=== PATIENT | male | born 1955 | race Hispanic/Latino ===

== ENCOUNTER 2017-07-07 10:17 | Emergency (ER) | payer SELFPAY ==
[2017-07-07 10:25] VITALS: BP 93/69; PULSE 90; RESP 18; TEMP 97.6; O2SAT 96
[2017-07-07 10:32] VITALS: BMI 26.6
[2017-07-07] MEDS ORDERED: Albuterol-Ipratrop 3 mg / 0.5 (3 ml) UD IH STA (10:34)
[2017-07-07] MEDS ORDERED: Albuterol 0.083% Inhal Sol (2.5 mg/3 mL) UD INH STA (10:34)
[2017-07-07] MEDS ORDERED: levoFLOXacin 750 mg in D5W 150 ML BAG IVPB ONE (10:50)
--- NOTE | 2017-07-07 11:01 | ED PDOC ---
Arrival/HPI - General Chief Complaint: Shortness Of Breath Time Seen by Provider: 07/07/17 10:33 Historian: Patient - History of Present Illness Narrative History of Present Illness (Text): 07/07/17 10:58 A 62 year old male, whose past medical history includes COPD, presents to the emergency department complaining of worsening shortness of breath today. Patient primarily speaks [place] Zealander, history obtained through granddaughter. Patient reports experiencing similar episodes in the past. Patient denies any fever, chills, nausea, vomiting, abdominal pain, chest pain or any other complaints. Time/Duration: Other (today) Symptom Course: Worsening Context: Home Past Medical History - Provider Review Nursing Documentation Reviewed: Yes - Infectious Disease Hx of Infectious Diseases: None - Past Medical History Past Medical History: Unable to Obtain - Cardiac Hx Cardiac Disorders: No - Pulmonary Hx Respiratory Disorders: Yes Hx Chronic Obstructive Pulmonary Disease (COPD): Yes - Neurological Hx Neurological Disorder: No - HEENT Hx HEENT Disorder: No - Renal Hx Renal Disorder: No - Endocrine/Metabolic Hx Endocrine Disorders: No - Hematological/Oncological Hx Blood Disorders: No - Integumentary Hx Dermatological Disorder: No - Musculoskeletal/Rheumatological Hx Musculoskeletal Disorders: No - Gastrointestinal Hx Gastrointestinal Disorders: No - Genitourinary/Gynecological Hx Genitourinary Disorders: No - Psychiatric Hx Psychophysiologic Disorder: No Hx Substance Use: No - Anesthesia Hx Anesthesia: No - Suicidal Assessment Feels Threatened In Home Enviroment: No Family/Social History - Physician Review Nursing Documentation Reviewed: Yes Family/Social History: No Known Family HX Smoking Status: Never Smoked Hx Alcohol Use: No Hx Substance Use: No Allergies/Home Meds Allergies/Adverse Reactions: Allergies No Known Allergies Allergy (Verified 07/07/17 10:32) Home Medications: Home Meds Medication Instructions Recorded Confirmed Fluticasone/Salmeterol [Advair 1 puff NEB TID 08/06/13 07/07/17 Diskus 250/50] Review of Systems - Physician Review All systems were reviewed & negative as marked: Yes - Review of Systems Constitutional: absent: Fevers, Night Sweats Respiratory: SOB Cardiovascular: absent: Chest Pain Gastrointestinal: absent: Abdominal Pain, Nausea, Vomiting Physical Exam Vital Signs Reviewed: Yes Vital Signs Temp Pulse Resp BP Pulse Ox 07/07/17 10:35 18 07/07/17 10:25 97.6 F 90 18 93/69 L 96 Temperature: Afebrile Blood Pressure: Hypotensive Pulse: Regular Respiratory Rate: Normal Appearance: Positive for: Well-Appearing, Non-Toxic, Comfortable Pain Distress: None Mental Status: Positive for: Alert and Oriented X 3 - Systems Exam Head: Present: Atraumatic, Normocephalic Pupils: Present: PERRL Extroacular Muscles: Present: EOMI Conjunctiva: Present: Normal Mouth: Present: Moist Mucous Membranes Neck: Present: Normal Range of Motion Respiratory/Chest: Present: Clear to Auscultation, Good Air Exchange. No: Respiratory Distress, Accessory Muscle Use Cardiovascular: Present: Regular Rate and Rhythm, Normal S1, S2. No: Murmurs Abdomen: No: Tenderness, Distention, Peritoneal Signs Back: Present: Normal Inspection Upper Extremity: Present: Normal Inspection. No: Cyanosis, Edema Lower Extremity: Present: Normal Inspection. No: Edema Neurological: Present: GCS=15, CN II-XII Intact, Speech Normal Skin: Present: Warm, Dry, Normal Color. No: Rashes Psychiatric: Present: Alert, Oriented x 3, Normal Insight, Normal Concentration Medical Decision Making ED Course and Treatment: 07/07/17 10:58 Impression: A 62 year old male with worsening shortness of breath Plan: -- Chest xray -- EKG -- Labs -- Albuterol, Duoneb, Levaquin and Solumedrol -- Reassess and disposition Progress Notes: EKG shows NSR at [address]-segment elevations, normal intervals, normal axis. Interpreted by me. Report Date: 07/07/17 11:01 Procedure: Chest xray Dictated By: Kendrick Arechiga MD Impression: No active disease - Lab Interpretations I have reviewed the lab results: Yes - RAD Interpretation Radiology Orders: 07/07/17 10:34 CHEST PORTABLE [RAD] Stat - Medication Orders Current Medication Orders: Discontinued Medications Albuterol Sulfate (Albuterol 0.083% Inhal Melvina (2.5 Mg/3 Ml) Ud) 5 mg INH STAT STA Stop: 07/07/17 10:35 Last Admin: 07/07/17 10:58 Dose: 5 mg Albuterol/Ipratropium (Duoneb 3 Mg/0.5 Mg (3 Ml) Ud) 3 ml IH STAT STA Stop: 07/07/17 10:35 Last Admin: 07/07/17 10:43 Dose: 3 ml Levofloxacin/Dextrose (Levaquin 750mg) 750 mg IVPB ONCE ONE PRN Reason: Protocol Stop: 07/07/17 10:51 Last Admin: 07/07/17 10:58 Dose: 750 mg eMAR Start Stop Document 07/07/17 10:58 OCS (Rec: 07/07/17 10:58 OCS [id number]) Intravenous Solution Start Date 07/07/17 Start Time 10:58 Methylprednisolone (Solu-Medrol) 125 mg IVP STAT STA Stop: 07/07/17 10:35 Last Admin: 07/07/17 10:43 Dose: 125 mg IVP Administration Document 07/07/17 10:43 OCS (Rec: 07/07/17 10:43 OCS [id number]) Charges for Administration # of IVP Administrations 1 - Scribe Statement The provider has reviewed the documentation as recorded by the Scribe Carley Koch Provider Scribe Attestation: All medical record entries made by the Scribe were at my direction and personally dictated by me. I have reviewed the chart and agree that the record accurately reflects my personal performance of the history, physical exam, medical decision making, and the department course for this patient. I have also personally directed, reviewed, and agree with the discharge instructions and disposition. Disposition/Present on Arrival - Present on Arrival Any Indicators Present on Arrival: No History of DVT/PE: No History of Uncontrolled Diabetes: No Urinary Catheter: No History of Decub. Ulcer: No History Surgical Site Infection Following: None - Disposition Have Diagnosis and Disposition been Completed?: Yes Diagnosis: COPD exacerbation, Tobacco dependence Disposition: HOME/ ROUTINE Disposition Time: 11:19 Patient Plan: Discharge Condition: GOOD Discharge Instructions (ExitCare): COPD Including Emphysema (DC), Medicines for Chronic Obstructive Pulmonary Disease (COPD) Additional Instructions: Camilapzef Return to us if worse. Levaquin is the antibiotic, once a day every day for ten days. Humberto- Dr. Brandon Diaz Prescriptions: Albuterol HFA [Ventolin HFA 90 mcg/actuation (8 g)] 2 puff IH [id number] #2 puff levoFLOXacin [Levaquin] 750 mg PO DAILY #10 tab Methylprednisolone [Medrol Dose Pack (21 tabs)] 4 mg PO DAILY #21 mg Forms: [facility] ([employer])
--- NOTE | 2017-07-07 11:03 | RAD ---
HISTORY: dyspnea COMPARISON: 08/06/2013 FINDINGS: LUNGS: No active pulmonary disease. PLEURA: No significant pleural effusion identified, no pneumothorax apparent. CARDIOVASCULAR: Normal. OSSEOUS STRUCTURES: No significant abnormalities. VISUALIZED UPPER ABDOMEN: Normal. OTHER FINDINGS: None. IMPRESSION: No active disease.
[2017-07-07 11:16] LABS: BASO # 0.06 K/mm3 (0.0-2.0); BASO % 0.7 % (0.0-3.0); EOS # 0.5 (0.0-0.7); EOS % 5.1 % (1.5-5.0); GRAN # 5.99 (1.4-6.5); GRAN % 64.9 % (50.0-68.0); HEMOGLOBIN 13.5 g/dL (14.0-18.0); LYMPH # 2.2 (1.2-3.4); LYMPH % 23.5 % (22.0-35.0); MEAN CELL VOLUME 95.7 fl (80.0-105.0); MEAN CORPUSCULAR HEMOGLOBIN 32.5 pg (25.0-35.0); MEAN CORPUSCULAR HGB CONC 33.9 g/dl (31.0-37.0); MEAN PLATELET VOLUME 9.8 fl (7.0-11.0); MONO # 0.5 (0.1-0.6); MONO % 5.8 % (1.0-6.0); RBC 4.16 10^6/uL (3.5-6.1); RED CELL DISTRIBUTION WIDTH 13.3 % (11.5-14.5); WHITE BLOOD COUNT 9.2 10^3/ul (4.5-11.0)
[2017-07-07 11:27] LABS: ALB/GLOB RATIO 1.1 (1.1-1.8); ALT/SGPT 22 U/L (7-56); AST/SGOT 23 U/L (17-59); BLOOD UREA NITROGEN 17 mg/dL (7-21); CALCIUM 9.7 mg/dL (8.4-10.5); GFR AFRICAN-AMERICAN > 60; GFR NON-AFRICAN AMERICAN > 60
[2017-07-07 11:30] LABS: INR 1.02 (0.93-1.08); PROTHROMBIN TIME 11.7 SECONDS (9.4-12.5)
[2017-07-07 11:39] LABS: TROPONIN I < 0.01 ng/mL
--- NOTE | 2017-07-07 16:54 | CARD ---
APPROVED REPORT EKG Measurement Heart [id number] <Conclusion> Normal sinus rhythm Normal ECG
== END 2017-07-07 12:08 | disposition home or self-care (01) ==
LOC: ED 10:17
DX: J44.1 Chronic obstructive pulmonary disease with (acute) exacerbation (principal); F17.200 Nicotine dependence, unspecified, uncomplicated
CPT/HCPCS: 71045; 80053; 82550; 83615; 84484; 85025; 85610; 93005; 96374; 99284; J2930

== ENCOUNTER 2018-02-21 13:35 | Emergency (ER) | payer MEDICAID, OTHER ==
[2018-02-21 13:35] VITALS: BMI 26.6
[2018-02-21] MEDS ORDERED: Sodium Chloride 0.9% 1,000 ML IV SCH (14:30)
--- NOTE | 2018-02-21 14:30 | ED PDOC ---
Arrival/HPI - General Chief Complaint: Shortness Of Breath Historian: Patient - History of Present Illness Narrative History of Present Illness (Text): 02/21/18 14:28 62 y/o male, pmh including copd, previous smoker, c/o coughing/wheezing x 2 days. Pt. stated that he has been coughing, feeling like his usual COPD, wheezing with no albuterol MDI, no fever or chills, no headache or night sweat, no rash, no numbness or tingling, no chest pain or palpitation, no rash, no other medical or psychological complaints. Past Medical History - Provider Review Nursing Documentation Reviewed: Yes - Infectious Disease Hx of Infectious Diseases: None - Past Medical History Past Medical History: Unable to Obtain - Cardiac Hx Cardiac Disorders: No - Pulmonary Hx Respiratory Disorders: Yes Hx Chronic Obstructive Pulmonary Disease (COPD): Yes - Neurological Hx Neurological Disorder: No - HEENT Hx HEENT Disorder: No - Renal Hx Renal Disorder: No - Endocrine/Metabolic Hx Endocrine Disorders: No - Hematological/Oncological Hx Blood Disorders: No - Integumentary Hx Dermatological Disorder: No - Musculoskeletal/Rheumatological Hx Musculoskeletal Disorders: No - Gastrointestinal Hx Gastrointestinal Disorders: No - Genitourinary/Gynecological Hx Genitourinary Disorders: No - Psychiatric Hx Psychophysiologic Disorder: No Hx Substance Use: No - Anesthesia Hx Anesthesia: No - Suicidal Assessment Feels Threatened In Home Enviroment: No Family/Social History - Physician Review Nursing Documentation Reviewed: Yes Family/Social History: Unknown Family HX Smoking Status: Never Smoked Hx Alcohol Use: No Hx Substance Use: No Allergies/Home Meds Allergies/Adverse Reactions: Allergies No Known Allergies Allergy (Verified 02/21/18 13:54) Review of Systems - Review of Systems Constitutional: absent: Fatigue, Fevers Eyes: absent: Vision Changes ENT: absent: Hearing Changes Respiratory: Cough, Sputum, Wheezing. absent: SOB Cardiovascular: absent: Chest Pain Gastrointestinal: absent: Abdominal Pain, Diarrhea, Nausea, Vomiting Skin: absent: Rash, Pruritis Neurological: absent: Headache, Dizziness Psychiatric: absent: Anxiety, Depression Physical Exam Vital Signs Reviewed: Yes Vital Signs Temp Pulse Resp BP Pulse Ox 02/21/18 14:24 17 96 02/21/18 13:55 98.1 F 68 18 138/64 95 Temperature: Afebrile Blood Pressure: Normal Pulse: Regular Respiratory Rate: Normal Appearance: Positive for: Well-Appearing, Non-Toxic, Comfortable Pain Distress: None Mental Status: Positive for: Alert and Oriented X 3 - Systems Exam Head: Present: Atraumatic, Normocephalic Pupils: Present: PERRL Extroacular Muscles: Present: EOMI Conjunctiva: Present: Normal Mouth: Present: Moist Mucous Membranes Neck: Present: Normal Range of Motion Respiratory/Chest: Present: Wheezes, Decreased Breath Sounds, Rhonchi. No: Respiratory Distress, Accessory Muscle Use, Rales, Retracting, Tachypneic, Tender to Palpation Cardiovascular: Present: Regular Rate and Rhythm, Normal S1, S2, Other (no pedal edema). No: Murmurs Abdomen: No: Tenderness, Distention, Peritoneal Signs Back: Present: Normal Inspection Upper Extremity: Present: Normal Inspection. No: Cyanosis, Edema Lower Extremity: Present: Normal Inspection. No: Edema Neurological: Present: GCS=15, CN II-XII Intact, Speech Normal Skin: Present: Warm, Dry, Normal Color. No: Rashes Psychiatric: Present: Alert, Oriented x 3, Normal Insight, Normal Concentration Medical Decision Making ED Course and Treatment: 02/21/18 14:29 -labs -cxr -IV solumedrol/duoneb -observe and reassess 02/21/18 16:48 -CXR No active disease. -Labs show no acute findings except BUN 23 (IVF ordered) -Mg within normal limit -Trop is negative after 24 hours, HEART score is low -BNP is negative -Pt. feels much better, wheezing resolved, bilateral clear to auscultate now with no wheezing/crackles/rhonchis, vitally stable, walking around and asymptomatic with oxygen persistently above 96 percentage room air as I walked with him in the ER, discussed about the results, and request to be discharged home. -Discharge home with zithromax, prednisone, albuterol, singulair, stay hydrated, follow up with your own pmd and pleater within 2 days, return to the ER for any new or worsening signs or symptoms. - RAD Interpretation Radiology Orders: 02/21/18 14:27 CHEST PORTABLE [RAD] Stat Date of service: 02/21/2018 HISTORY: cough/wheezing COMPARISON: 07/07/2017 FINDINGS: LUNGS: No active pulmonary disease. PLEURA: No significant pleural effusion identified, no pneumothorax apparent. CARDIOVASCULAR: No aortic atherosclerotic calcification present. Normal cardiac size. No pulmonary vascular congestion. OSSEOUS STRUCTURES: No significant abnormalities. VISUALIZED UPPER ABDOMEN: Normal. OTHER FINDINGS: None. IMPRESSION: No active disease. Drums Teacher: Radiologist - PA / EYELETTER / Resident Statement MD/DO has reviewed & agrees with the documentation as recorded. Disposition/Present on Arrival - Present on Arrival Any Indicators Present on Arrival: No History of DVT/PE: No History of Uncontrolled Diabetes: No Urinary Catheter: No History of Decub. Ulcer: No History Surgical Site Infection Following: None - Disposition Have Diagnosis and Disposition been Completed?: Yes Diagnosis: Bronchitis Disposition: HOME/ ROUTINE Disposition Time: 16:54 Patient Plan: Discharge Patient Problems: Current Active Problems Problem Status Onset Bronchitis Acute Condition: IMPROVED Additional Instructions: -Discharge home with zithromax, prednisone, albuterol, singulair, stay hydrated, follow up with your own pmd and pleater within 2 days, return to the ER for any new or worsening signs or symptoms. Prescriptions: Albuterol HFA [Ventolin HFA 90 mcg/actuation (8 g)] 2 puff IH [id number] PRN #1 inhaler PRN Reason: Other Azithromycin [Zithromax] 250 mg PO DAILY #6 tab Montelukast Sodium [Singulair] 10 mg PO DAILY #10 tab Prednisone 50 mg PO DAILY #5 tablet Referrals: Tanner Raza MD [Staff Provider] - Follow up with primary [facility] [place] - Follow up with primary Forms: [facility] (Slovenian), WORK NOTE
[2018-02-21] MEDS: Albuterol-Ipratrop 3 mg / 0.5 (3 ml) UD IH SCH ×2 (14:46→15:34)
[2018-02-21 14:51] LABS: BASO # 0.05 K/mm3 (0.0-2.0); BASO % 0.6 % (0.0-3.0); EOS # 0.5 (0.0-0.7); EOS % 6.2 % (1.5-5.0); GRAN # 4.78 (1.4-6.5); GRAN % 54.9 % (50.0-68.0); HEMOGLOBIN 13.5 g/dL (14.0-18.0); LYMPH # 2.6 (1.2-3.4); LYMPH % 30.1 % (22.0-35.0); MEAN CELL VOLUME 96.6 fl (80.0-105.0); MEAN CORPUSCULAR HGB CONC 34.2 g/dl (31.0-37.0); MEAN PLATELET VOLUME 9.3 fl (7.0-11.0); MONO # 0.7 (0.1-0.6); MONO % 8.2 % (1.0-6.0); RBC 4.09 10^6/uL (3.5-6.1); RED CELL DISTRIBUTION WIDTH 13.3 % (11.5-14.5); WHITE BLOOD COUNT 8.7 10^3/uL (4.5-11.0)
[2018-02-21 15:02] LABS: ALB/GLOB RATIO 1.2 (1.1-1.8); ALBUMIN 3.8 g/dL (3.0-4.8); ALT/SGPT 27 U/L (7-56); AST/SGOT 22 U/L (17-59); BLOOD UREA NITROGEN 23 mg/dL (7-21); CALCIUM 8.8 mg/dL (8.4-10.5); GFR NON-AFRICAN AMERICAN > 60
[2018-02-21 15:13] LABS: B-TYPE NATRIURETIC PEPTIDE 163 pg/mL (0-450); TROPONIN I < 0.01 ng/mL
--- NOTE | 2018-02-21 15:24 | RAD ---
Date of service: 02/21/2018 HISTORY: cough/wheezing COMPARISON: 07/07/2017 FINDINGS: LUNGS: No active pulmonary disease. PLEURA: No significant pleural effusion identified, no pneumothorax apparent. CARDIOVASCULAR: No aortic atherosclerotic calcification present. Normal cardiac size. No pulmonary vascular congestion. OSSEOUS STRUCTURES: No significant abnormalities. VISUALIZED UPPER ABDOMEN: Normal. OTHER FINDINGS: None. IMPRESSION: No active disease.
[2018-02-21 17:13] VITALS: BP 130/88; PULSE 70; RESP 18; TEMP 98; O2SAT 99
== END 2018-02-21 17:13 | disposition home or self-care (01) ==
LOC: ED 13:35
DX: J40 Bronchitis, not specified as acute or chronic (principal)
CPT/HCPCS: 71045; 80053; 83735; 83880; 84484; 85025; 96374; 99282; J2930; J7030

== ENCOUNTER 2018-05-02 09:39 | Emergency (ER) | payer SELFPAY ==
[2018-05-02 09:39] VITALS: BMI 26.6
[2018-05-02 09:55] VITALS: TEMP 97.7
[2018-05-02] MEDS ORDERED: Albuterol-Ipratrop 3 mg / 0.5 (3 ml) UD IH STA ×2 (10:01)
[2018-05-02 10:24] LABS: VENOUS BLOOD GAS BASE EXCESS 0.8 mmol/L (0.0-2.0); VENOUS BLOOD GAS PO2 48 mm/Hg (30-55); VENOUS BLOOD PH 7.37 (7.32-7.43)
--- NOTE | 2018-05-02 10:57 | RAD ---
Date of service: 05/02/2018 HISTORY: SOB COMPARISON: 02/21/2018 FINDINGS: LUNGS: No infiltrate. Calcified granuloma in right lung apex consistent with old granulomatous disease. No other pulmonary mass. PLEURA: No significant pleural effusion identified, no pneumothorax apparent. CARDIOVASCULAR: No aortic atherosclerotic calcification present. Normal cardiac size. No pulmonary vascular congestion. OSSEOUS STRUCTURES: No significant abnormalities. VISUALIZED UPPER ABDOMEN: Normal. OTHER FINDINGS: None. IMPRESSION: No active disease. Old granulomatous disease
[2018-05-02 11:03] LABS: BASO # 0.05 K/mm3 (0.0-2.0); BASO % 0.7 % (0.0-3.0); EOS # 0.4 (0.0-0.7); EOS % 5.1 % (1.5-5.0); HEMOGLOBIN 13.4 g/dL (14.0-18.0); LYMPH # 2.3 (1.2-3.4); LYMPH % 29.8 % (22.0-35.0); MEAN CELL VOLUME 95.4 fl (80.0-105.0); MEAN CORPUSCULAR HEMOGLOBIN 32.2 pg (25.0-35.0); MEAN CORPUSCULAR HGB CONC 33.8 g/dl (31.0-37.0); MEAN PLATELET VOLUME 10.4 fl (7.0-11.0); MONO # 0.5 (0.1-0.6); MONO % 6.8 % (1.0-6.0); RBC 4.16 10^6/uL (3.5-6.1); RED CELL DISTRIBUTION WIDTH 12.9 % (11.5-14.5); WHITE BLOOD COUNT 7.7 10^3/uL (4.5-11.0)
[2018-05-02 11:06] LABS: ALB/GLOB RATIO 1.3 (1.1-1.8); ALBUMIN 4.2 g/dL (3.0-4.8); ALT/SGPT 7 U/L (7-56); AST/SGOT 20 U/L (17-59); BLOOD UREA NITROGEN 19 mg/dL (7-21); CALCIUM 9.3 mg/dL (8.4-10.5); GFR NON-AFRICAN AMERICAN > 60
[2018-05-02 11:07] LABS: INR 1.04; PARTIAL THROMBOPLASTIN TIME 35.7 Seconds (26.9-38.3); PROTHROMBIN TIME 11.8 SECONDS (9.4-12.5)
--- NOTE | 2018-05-02 11:13 | ED PDOC ---
Arrival/HPI - General Chief Complaint: Shortness Of Breath Time Seen by Provider: 05/02/18 09:55 Historian: Patient - History of Present Illness Narrative History of Present Illness (Text): 05/02/18 11:09 63yo male with pmhx of COPD bib the daughter with complaint of worsening SOB since yesterday. The daughter who translated states patient uses inhaler and spirva at home. states she gets this symptoms albion 6months and it usually resolve with steroid. Reports history of admission secondary to COPD. He is not steroid dependent and never intubated. smokes tobacco. Denies fever, chills, cough, sick contact, travel, any other complaint Past Medical History - Provider Review Nursing Documentation Reviewed: Yes - Infectious Disease Hx of Infectious Diseases: None - Past Medical History Past Medical History: Unable to Obtain - Cardiac Hx Cardiac Disorders: No - Pulmonary Hx Respiratory Disorders: Yes Hx Chronic Obstructive Pulmonary Disease (COPD): Yes - Neurological Hx Neurological Disorder: No - HEENT Hx HEENT Disorder: No - Renal Hx Renal Disorder: No - Endocrine/Metabolic Hx Endocrine Disorders: No - Hematological/Oncological Hx Blood Disorders: No - Integumentary Hx Dermatological Disorder: No - Musculoskeletal/Rheumatological Hx Musculoskeletal Disorders: No - Gastrointestinal Hx Gastrointestinal Disorders: No - Genitourinary/Gynecological Hx Genitourinary Disorders: No - Psychiatric Hx Psychophysiologic Disorder: No Hx Substance Use: No - Anesthesia Hx Anesthesia: No Hx Anesthesia Reactions: No Hx Malignant Hyperthermia: No - Suicidal Assessment Feels Threatened In Home Enviroment: No Family/Social History - Physician Review Nursing Documentation Reviewed: Yes Family/Social History: Unknown Family HX Smoking Status: Never Smoked Hx Alcohol Use: No Hx Substance Use: No Allergies/Home Meds Allergies/Adverse Reactions: Allergies No Known Allergies Allergy (Verified 02/21/18 13:54) Review of Systems - Physician Review All systems were reviewed & negative as marked: Yes - Review of Systems Constitutional: Normal Eyes: Normal ENT: Normal Respiratory: SOB Cardiovascular: Normal Gastrointestinal: Normal Genitourinary Male: Normal Musculoskeletal: Normal Skin: Normal Neurological: Normal Endocrine: Normal Hemo/Lymphatic: Normal Psychiatric: Normal Physical Exam Vital Signs Reviewed: Yes Vital Signs Temp Pulse Resp BP Pulse Ox 05/02/18 09:39 97.7 F 78 18 124/90 94 L Temperature: Afebrile Blood Pressure: Normal Pulse: Regular Respiratory Rate: Normal Appearance: Positive for: Well-Appearing, Non-Toxic, Comfortable Pain Distress: None Mental Status: Positive for: Alert and Oriented X 3 - Systems Exam Head: Present: Atraumatic, Normocephalic Pupils: Present: PERRL Extroacular Muscles: Present: EOMI Conjunctiva: Present: Normal Mouth: Present: Moist Mucous Membranes Neck: Present: Normal Range of Motion Respiratory/Chest: Present: Good Air Exchange, Wheezes, Decreased Breath Sounds. No: Respiratory Distress, Accessory Muscle Use, Rales, Retracting, Rhonchi Cardiovascular: Present: Regular Rate and Rhythm, Normal S1, S2. No: Murmurs Abdomen: No: Tenderness, Distention, Peritoneal Signs Back: Present: Normal Inspection Upper Extremity: Present: Normal Inspection. No: Cyanosis, Edema Lower Extremity: Present: Normal Inspection. No: Edema Neurological: Present: GCS=15, CN II-XII Intact, Speech Normal Skin: Present: Warm, Dry, Normal Color. No: Rashes Psychiatric: Present: Alert, Oriented x 3, Normal Insight, Normal Concentration Medical Decision Making ED Course and Treatment: 05/02/18 11:26 Pt in ED for stated history He was not hypoxic and not in any distress. He had expiratory wheeze with decreased BS on presentation chest xray Labs EKG solu medrol, duoneb x3 Chest xray - NAD EKG NSR @ 75bpm On re evaluation pt's lung was CTA b/l. he notes complete resolution of his symptoms. He was talking in full sentence and ambulatory without distress He will be Dc home with prednisone and referred to his PMD - Lab Interpretations Lab Results: pO2 48 mm/Hg (30-55) 05/02/18 10:10 VBG pH 7.37 (7.32-7.43) 05/02/18 10:10 VBG pCO2 46.0 (40-60) 05/02/18 10:10 VBG HCO3 26.6 mmol/l (21-28) 05/02/18 10:10 VBG Total CO2 28.0 mmol.L (22-28) 05/02/18 10:10 VBG O2 Sat (Calc) 87.6 % (40-65) H 05/02/18 10:10 VBG Base Excess 0.8 mmol/L (0.0-2.0) 05/02/18 10:10 VBG Potassium 4.0 mmol/L (3.6-5.2) 05/02/18 10:10 Sodium 139.0 mmol/L (132-148) 05/02/18 10:10 Chloride 107.0 mmol/L (98-107) 05/02/18 10:10 Glucose 84 mg/dl (75-110) 05/02/18 10:10 Lactate 2.0 mmol/L (0.7-2.1) 05/02/18 10:10 FiO2 21.0 % 05/02/18 10:10 Crit Value Called To Lillian sutton 05/02/18 10:10 Crit Value Called By [id number] 05/02/18 10:10 Blood Gas Notified Time 1025 05/02/18 10:10 PT 11.8 SECONDS (9.4-12.5) 05/02/18 10:00 INR 1.04 05/02/18 10:00 APTT 35.7 Seconds (26.9-38.3) 05/02/18 10:00 Total Bilirubin 0.7 mg/dL (0.2-1.3) 05/02/18 10:00 AST 20 U/L (17-59) 05/02/18 10:00 ALT 7 U/L (7-56) 05/02/18 10:00 Alkaline Phosphatase 74 U/L (38-126) 05/02/18 10:00 Total Protein 7.5 g/dL (5.8-8.3) 05/02/18 10:00 Albumin 4.2 g/dL (3.0-4.8) 05/02/18 10:00 Globulin 3.3 gm/dL 05/02/18 10:00 Albumin/Globulin Ratio 1.3 (1.1-1.8) 05/02/18 10:00 - RAD Interpretation Radiology Orders: 05/02/18 10:00 CHEST PORTABLE [RAD] Stat - Medication Orders Current Medication Orders: Discontinued Medications Albuterol/Ipratropium (Duoneb 3 Mg/0.5 Mg (3 Ml) Ud) 3 ml IH STAT STA Stop: 05/02/18 10:02 Last Admin: 05/02/18 10:06 Dose: 3 ml Albuterol/Ipratropium (Duoneb 3 Mg/0.5 Mg (3 Ml) Ud) 3 ml IH STAT STA Stop: 05/02/18 10:02 Last Admin: 05/02/18 10:23 Dose: 3 ml Methylprednisolone (Solu-Medrol) 125 mg IVP STAT STA Stop: 05/02/18 10:02 Last Admin: 05/02/18 10:24 Dose: 125 mg IVP Administration Document 05/02/18 10:24 RAYMON (Rec: 05/02/18 10:24 [id number] Charges for Administration # of IVP Administrations 1 Disposition/Present on Arrival - Present on Arrival Any Indicators Present on Arrival: No History of DVT/PE: No History of Uncontrolled Diabetes: No Urinary Catheter: No History of Decub. Ulcer: No History Surgical Site Infection Following: None - Disposition Have Diagnosis and Disposition been Completed?: Yes Diagnosis: COPD exacerbation Disposition: HOME/ ROUTINE Disposition Time: 11:30 Condition: STABLE Discharge Instructions (ExitCare): Chronic Obstructive Pulmonary Disease (COPD), Including Emphysema Additional Instructions: Follow up with your Doctor Return to ED for any new or worsening symptoms Prescriptions: RX: Prednisone 50 mg PO DAILY #5 tablet Referrals: Elvi SUTTON,Liu Redman MD [Staff Provider] - Follow up with primary Forms: [employer] (Russian)
[2018-05-02 11:18] LABS: B-TYPE NATRIURETIC PEPTIDE 112 pg/mL (0-450); TROPONIN I < 0.01 ng/mL
--- NOTE | 2018-05-02 12:05 | CARD ---
APPROVED REPORT Date of service: 05/02/2018 EKG Measurement Heart [id number] <Conclusion> Normal sinus rhythm Normal ECG
[2018-05-02 13:02] VITALS: RESP 20; O2SAT 97
[2018-05-02 13:04] VITALS: BP 141/76; PULSE 80
== END 2018-05-02 13:10 | disposition home or self-care (01) ==
LOC: ED 09:39
DX: J44.1 Chronic obstructive pulmonary disease with (acute) exacerbation (principal)
CPT/HCPCS: 71045; 80053; 82550; 82803; 83615; 83735; 83880; 84484; 85025; 85610; 85730; 87040; 93005; 96374; 99283; J2930